=== PATIENT | male | born 1935 | race Caucasian/White ===

== ENCOUNTER → 2020-08-11 14:45 | Outpatient (CLI) | payer MEDICARE, OTHER, SELFPAY ==
--- NOTE | 2020-08-11 14:52 | CT_ITS ---
STUDY: CT MAXILLOFACIAL SINUSES REASON FOR EXAM: Male, 85 years old. Sinusitis. RADIATION DOSAGE (If Supplied By Facility): CTDIvol = ( 33.06 ) mGy, DLP = ( 837.98 ) mGycm TECHNIQUE: The patient was scanned in a multi detector CT scanner. High resolution axial imaging was performed without the administration of intravenous contrast material. Sagittal and coronal images were reconstructed. Individualized dose optimization techniques were used for this CT. COMPARISON: None. FINDINGS: FRONTAL SINUSES: Mild frontal sinus mucosal thickening. ETHMOIDAL SINUSES: Moderate ethmoid sinus mucosal thickening. MAXILLARY SINUSES: Mild mucosal thickening with moderate size air-fluid levels bilaterally. SPHENOIDAL SINUSES: Mild to moderate sphenoid sinus mucosal thickening. Occlusion of the ostiomeatal complexes. Normal bilateral middle turbinates. Normal bilateral inferior turbinates. Normal midline nasal septum. There is patency of the bilateral nasal airways. The visualized osseous structures are normal. The visualized bilateral orbital contents are normal. Mastoid air cells are well aerated. CT/Sinus/Facial Bone IMPRESSION: Pansinusitis. Maxillary sinus air-fluid levels compatible with acute or chronic sinusitis. Electronically Signed: Ant Eddy MD at 2:44 EDT , Service support ,
== END ==
PROVIDERS: PCP Family Medicine; Referring Provider Otolaryngology; Visit Provider Otolaryngology
DX: J32.8 Other chronic sinusitis (principal)
CPT/HCPCS: 70486

== ENCOUNTER 2020-09-29 08:09 | Day surgery (SDC) | payer MEDICARE, OTHER, SELFPAY ==
--- NOTE | 2020-09-24 10:50 | EKG12_ITS ---
Test Reason : PREOP Blood Pressure : / mmHG Vent. Rate : 098 BPM Atrial Rate : 098 BPM P-R Int : 150 ms QRS Dur : 074 ms QT Int : 330 ms P-R-T Axes : 094 105 058 degrees QTc Int : 421 ms Suspect arm lead reversal, interpretation assumes no reversal Normal sinus rhythm Normal ECG Confirmed by FARHAN MILLS, PORTILLO ([id number]), assignment editor GUILLERMO WOODSON ([id number]) on 09/28/2020 10:38:26 AM Referred By: Jose Maya Confirmed By:PANCHO REAL MD
--- NOTE | 2020-09-24 11:00 | RAD_ITS ---
STUDY: X-RAY CHEST REASON FOR EXAM: Male, 85 years old. PREOP TECHNIQUE: PA and lateral views of the chest. COMPARISON: None. FINDINGS: Lungs are hyperexpanded with increased retrosternal clear space, chronic fibrotic changes in upper lobe dominant hyperlucency compatible with chronic obstructive airway disease/emphysema. Pectus excavatum. No airspace consolidation. 14 mm nodule projects at the right lung base abutting the right hemidiaphragm. There is no demonstrated pleural abnormality. Normal size heart. Normal mediastinum and derick. Normal visualized pulmonary arteries. There is atherosclerotic calcification of the aortic arch with tortuosity. Normal visualized thoracic spine. Normal visualized ribs, clavicles, and shoulders. There is no demonstrated abnormality of the visualized soft tissue structures of the upper abdomen. RAD/Chest PA and Lateral IMPRESSION: 1. No acute cardiopulmonary process. 2. Possible nodule (14 mm) in the lateral right lung base abutting the hemidiaphragm. Chest CT recommended. 3. Chronic obstructive airway disease/emphysema. Electronically Signed: Ketan Sahu MD ([place]) at 8:04 EDT , Service support ,
[2020-09-24 12:59] LABS: Anion Gap 7 (5-15); BUN 20 mg/dL (7-18); BUN/Creat Ratio 15.3 RATIO (10-20); Calcium,Total 8.9 mg/dL (8.5-10.1); Chloride 100 mmol/L (98-107); Creatinine, Serum 1.31 mg/dL (0.70-1.30); EST Glomerular Filtration Rate 55 mL/min (>60); Est Glom Filt Rate - Afr Amer 67 mL/min (>60); Glucose 94 mg/dL (74-106); Potassium 3.9 mmol/L (3.5-5.1); Sodium Level 136 mmol/L (136-145)
[2020-09-29 08:43] VITALS: BP 132/99; PULSE 80; RESP 18; TEMP 36.8; O2SAT 95; BMI 25.0
[2020-09-29] MEDS: Lactated Ringers 1,000 ML 100 ML IV (08:51)
--- NOTE | 2020-09-29 09:45 | ETH_PTH ---
PATIENT: ANOOP PAGAN LOC: [facility] [place] U#:[id number] AGE/SX: 85/M ROOM: RE09/29/[address]: Dr. Zackery Maya MD : [id number] BED: DIS: 09/29/2020 SPEC #: [id number] RECD: 09/29/20 12:52 STATUS: ASHLEY GOEL #: [id number] ULI: 09/29/20 09:[address]: Zackery Maya DEPT: SURGICAL PATHOLOGY RECD BY: Tona Somers ENTERED: 09/30/20 08:32 SP TYPE: ETH TISS OTHR DR: Dr. Marvel Lopez MD Tissues: A - Ethmoid sinus, NOS B - Ethmoid sinus, NOS Procedures: Decalcification bone/plaque Surgery Specimen Level IV HEADER OPERATION: Functional endoscopic sinus surgery, polypectomy PRE-OP DIAGNOSIS: Chronic pansinusitis, polyp of nasal cavity TISSUE SUBMITTED: A ? Left nasal contents, B ? Right nasal contents MICROSCOPIC DIAGNOSIS A. Left nasal contents: Fragments of respiratory mucosa with chronic inflammation. B. Right nasal contents: Fragments of respiratory mucosa with chronic inflammation and bone. See comment. SJ:sue 10/05/2020 COMMENT B. A few of the fragments have polypoid appearance consistent with benign mucosal polyp. MICROSCOPIC DESCRIPTION Slides are reviewed. GROSS DESCRIPTION A - Received in fixative is one container labeled with the patient's name and designated left nasal contents, curettage. The specimen consists of multiple irregular and somewhat gritty fragments of light ricks tissue that in aggregate measure 2.5 x 1.5 x 0.1 cm. The specimen is totally submitted in one cassette after decalcification. B - Received in fixative is one container labeled with the patient's name and designated right nasal contents, curettage. The specimen consists of multiple irregular and somewhat gritty fragments of light ricks tissue that in aggregate measure 3 x 2 x 0.2 cm. The specimen is totally submitted in one cassette after decalcification. / AM:sue 09/30/20 TC:5 CPT: 70727 x2, 95707 x2
[2020-09-29] MEDS: Oxymetazoline 0.05% 1 SPRAY SPRAY.BTL 15 SPRAY (09:57)
[2020-09-29] MEDS: Lidocaine 1% /Epi 1:100 (20ml) 20 ML Vial (10:25)
--- NOTE | 2020-09-29 11:23 | PCM.DC ---
Discharge Instructions Diet Discharge Diet: No restrictions Activity Discharge Activity: Return to Normal Activity Dressing / Incision Call your doctor if your incision/area has: Sudden Increased Bleeding Follow Up Care Please Follow Up With: Jose Maya MD When: 1 week Test Results: Test results from this visit will be discussed in further detail at your follow-up appointment, if applicable. Discharge Plan Admission Attending Provider: Jose Maya Primary Care Provider: Marvel Lopez Discharge Orders/Prescriptions Prescriptions: No Action paroxetine HCl 20 mg tablet 20 mg PO DAILY RF: 0 lisinopril 5 mg tablet 5 mg PO DAILY RF: 0 budesonide-formoterol [Symbicort] 160-4.5 mcg/actuation HFA aerosol inhaler 1 puff INHALATION BID RF: 0 cholecalciferol (vitamin D3) [Vitamin D3] 50 mcg (2,000 unit) Capsule 50 mcg PO DAILY RF: 0 Centrum Men 8 mg iron- 200 mcg-600 mcg Tablet 1 tab PO DAILY RF: 0 PreserVision AREDS-2 250-90-40-1 mg Capsule 1 tab PO BID RF: 0 Referrals / Follow Up: Marvel Lopez MD [Primary Care Provider] - Disposition Discharge Orders: Discharge Patient (Routine); Ordered 09/29/20 Ordered By: Dr. Jose Maya
--- NOTE | 2020-09-29 11:25 | PCM.OPRPT ---
Problems Associated Problem List Diagnoses (1) Chronic pansinusitis: (2) Nasal sinus polyp: Report of Operation Date of Procedure: 09/29/20 Pre-Operative Diagnosis: 1. chronic pansinusitis 2. sinonasal polyposis Post-Operative Diagnosis: 1. chronic pansinusitis 2. sinonasal polyposis Surgery/Procedure Performed:: 1. endoscopic maxillary antrostomy with removal of contents, right and left 2. endoscopic total ethmoidecotmy, right and left 3. endoscopic sphenoidotomy with removal of contents, right and left 4. endoscopic frontal sinus exploration removal of contents, right and left 5. excision nasal polyps, extensive 6. image guided navigation Description of Procedure: On the day of the procedure, after appropriate informed consent was obtained, the patient was brought to the operating room and placed in a supine position on the operating room table. The patient was placed under general endotracheal anesthesia by the anesthesiologist. The endotracheal tube was secured. image guidance navigation was set up on the face and accuracy was unable to be confirmed. the nose was injected with lidocaine/epinephrine and decongested with oxymetazoline-soaked pledgets. the zero degree endoscope was used to evaluate the nasal cavity. the superior attachment of the right and left middle turbinate and uncinate processes were injected with lidocaine/epinephrine. the left nasal cavity was evaluated. the middle turbinate was medialized. extensive polyps were removed from the middle meatus, frontal recess and sphenoethmoidal recess. a maxillary antrostomy and uncinectomy were performed with a idck elevator and a geraldo cut. the antrostomy was widened with a back-biter. purulent material was evacuated. the ethmoid bulla was entered bluntly with the suction. a total ethmoidectomy was performed with a curette and an upgoing blakesley. this was taken superiorly to the skull base and laterally to the lamina. a stankewicz maneuver was performed and no laminar defect was noted. the natural sphenoid os was widened with the microdebrider and contents were evacuated. fungus was removed from the sphenoethmoidal recess. the frontal recess was explored and contents were evacuated. hemostasis was achieved with suction cautery; kirstie was placed. the right nasal cavity was evaluated. the middle turbinate was medialized. extensive polyps were removed from the middle meatus, frontal recess and sphenoethmoidal recess. a maxillary antrostomy and uncinectomy were performed with a dick elevator and a geraldo cut. the antrostomy was widened with a back-biter. purulent material was evacuated. the ethmoid bulla was entered bluntly with the suction. a total ethmoidectomy was performed with a curette and an upgoing blakesley. this was taken superiorly to the skull base and laterally to the lamina. a stankewicz maneuver was performed and no laminar defect was noted. the natural sphenoid os was widened with the microdebrider and contents were evacuated. fungus was removed from the sphenoethmoidal recess. the frontal recess was explored and contents were evacuated. hemostasis was achieved with suction cautery; kirstie was placed.
[2020-09-29 11:30] VITALS: BP 118/68; BP 132/70; BP 132/99; PULSE 61; PULSE 66; RESP 16; TEMP 36.5; O2SAT 94; O2SAT 95
[2020-09-29 11:45] VITALS: BP 118/70; BP 132/99; PULSE 66; RESP 16; O2SAT 92
[2020-09-29 11:53] VITALS: BP 114/68; BP 132/99; PULSE 68; RESP 16; TEMP 36.4; O2SAT 93
[2020-09-29 12:35] VITALS: BP 124/70; BP 132/99; PULSE 70; RESP 16; TEMP 36.6; O2SAT 93
== END 2020-09-29 13:01 ==
LOC: SDC 08:09 → AC 08:10
PROVIDERS: PCP Family Medicine; Referring Provider Otolaryngology; Visit Provider Otolaryngology
PROC: (CPT 31237; principal; 2020-09-29 09:15)
DX: J32.4 Chronic pansinusitis (principal); J33.8 Other polyp of sinus; J44.9 Chronic obstructive pulmonary disease, unspecified
CPT/HCPCS: 00160; 31237; 31259; 31267; 36415; 71046; 80048; 88305; 88311; 93005; J7120; J2405

== ENCOUNTER → 2022-03-14 | Outpatient (CLI) | payer MEDICARE, OTHER, SELFPAY | END | disposition home or self-care (01) | PROVIDERS: PCP Family Medicine; Referring Provider Otolaryngology; Visit Provider Otolaryngology | DX: J32.8 Other chronic sinusitis (principal) | CPT/HCPCS: 87070; 87205 ==